=== PATIENT | female | born 1955 | race Caucasian/White ===

== ENCOUNTER 2025-04-29 11:22 | Emergency (ER) | payer MEDICARE, SELFPAY ==
[2025-04-29 11:33] VITALS: BP 185/101; PULSE 115; RESP 16; TEMP 36.6; O2SAT 100
[2025-04-29 11:35] VITALS: BP 193/114
--- NOTE | 2025-04-29 11:39 | PC.NURSE ---
cruz vásquez in with pt. call placed to EZEQUIEL milligan per cruz vásquez
--- NOTE | 2025-04-29 11:43 | ED.GENADULT ---
HPI - General Adult General Chief complaint: Unspecified Stated complaint: Blood Pressure/Stress/Anxiety Time Seen by Provider: 04/29/25 11:35 Source: patient Mode of arrival: ambulatory Limitations: no limitations History of Present Illness HPI narrative: Lexi is a 69-year-old female patient presenting to the clinic today with complaints of elevated blood pressure, increased stress and anxiety. She saw her PCP yesterday and was given a refill of her Ativan and was given a refill of her losartan. States that she has not been taking her losartan medication regularly. Did take her pill this morning. Blood pressure was elevated at home over 170 systolic so patient contacted her PCP and came to the urgent care. She denies any headache, shortness of breath, chest pain, dizziness, or visual changes. Blood pressure on the right arm was 185/101 and blood pressure in the left arm was 193/114 in the clinic today. Related Data Allergies Allergy/AdvReac Type Severity Reaction Status Date / Time propoxyphene Allergy Mild Other Verified 04/29/25 11:38 codeine Allergy Unknown Other Verified 04/29/25 11:38 naproxen Allergy Unknown Other Verified 04/29/25 11:38 meloxicam AdvReac Unknown GASTRIC Verified 04/29/25 11:38 DISTRESS Review of Systems Review of Systems: Pertinent positives per HPI. Patient denies any fever, chills, rash, headache, visual changes, dizziness, cough, runny nose, sore throat, shortness of breath, chest pain, palpitations, nausea, vomiting, diarrhea, constipation, abdominal pain, or any urinary issues. PMFSH Past Medical History Medical History Hx of blood clots Vaginitis and vulvovaginitis, unspecified Primary osteoarthritis of left knee Primary osteoarthritis of knees, bilateral Pes anserinus bursitis of left knee Other hyperlipidemia Hyperlipidemia, unspecified Flu vaccine need Family history of malignant neoplasm of digestive organ Essential (primary) hypertension Encounter for screening for malignant neoplasm of colon Encounter for other specified surgical aftercare Disease of nail Atopic dermatitis, unspecified Anxiety state, unspecified Anxiety Acute pain of left knee Family History Family History Father Hypertension Malignant neoplasm of prostate Patient's father is in good health Family history of arthritis Sibling Hypertension Patient's sister is in good health Patient's brother is in good health Cerebrovascular accident Mother Patient's mother is in good health Family history of dementia Other Carcinoma of colon Family history of malignant neoplasm Social History Social History Smoking status: Former smoker Second hand tobacco smoke exposure: No Smoking end date: 09/04/87 Alcohol intake: never Substance use: never Do You Feel Safe in your Home?: Yes Lack of Transportation: No Lack of Food: Never True Current Housing: I Have Housing Concerned About Future Housing: No Difficulty Paying Gas/Electric Bills: No Difficulty Paying for Meds: No Currently Unemployed: No Education: Trade/Vocational Certificate Difficulty w/ Childcare or Family Care: No Occupation/Education: retired Gender identity (if verbalized by the patient): Female Sexual Orientation (if Verbalized by the Patient): Straight or Heterosexual Spiritual care concerns: No Agree to blood products: No Comments At the time of my signature, I reviewed and agree with the nursing past medical, surgical, social, and family history. There is no relevant family history pertinent to the patient complaint. Exam Narrative: General: Well-developed, well nourished, in no apparent distress Head: Normocephalic, atraumatic. Cardio: Regular rate and rhythm, s1 and s2 normal, no murmur appreciated. Resp: Clear to auscultation bilaterally, no rhonchi, rales, wheezing or rubs. Extremities: No deformity, no edema, no cyanosis, capillary refill less than 2 seconds, peripheral pulses palpable and strong. Integumentary: Pillager, warm, and dry, intact without lesion, no rashes. Course Course Emergency Course: Portions of this record may have been created with voice recognition software. Level of Care: Express Care Visit Vital Signs Vital signs: Vital Signs Temperature 36.6 C 04/29/25 11:33 Pulse Rate 115 H 04/29/25 11:33 Respiratory Rate 16 04/29/25 11:33 Blood Pressure 185/101 H 04/29/25 11:33 Pulse Oximetry 100 04/29/25 11:33 Temperature 36.6 C 04/29/25 11:33 Pulse Rate 115 H 04/29/25 11:33 Respiratory Rate 16 04/29/25 11:33 Blood Pressure 193/114 H 04/29/25 11:35 Pulse Oximetry 100 04/29/25 11:33 Vital signs reviewed Transfer Transfered to: [place] Transportation: Other (Private car) Transfer rationale: Hypertension urgency Accepting physician: Dr. Mtz Transfer comments: Private car Medical Decision Making MDM Narrative Medical decision making narrative: At the time of visit patient is resting comfortably on the exam table. Patient appears to be nontoxic. Complaints of elevated blood pressure, increased stress and anxiety. She saw her PCP yesterday and was given a refill of her Ativan and was given a refill of her losartan. States that she has not been taking her losartan medication regularly. Did take her pill this morning. Blood pressure was elevated at home over 170 systolic so patient contacted her PCP and came to the urgent care. She denies any headache, shortness of breath, chest pain, dizziness, or visual changes. Blood pressure on the right arm was 185/101 and blood pressure in the left arm was 193/114 in the clinic today. Plan: Recommend transfer to the ER for asymptomatic hypertension urgency. Patient agrees to transfer would like to go to [place] the emergency room. Contacted Armando COVINGTON at [place] emergency room report was given for continuity care. Dr. Mtz accepts patient for transfer. Differential Diagnosis Differential Diagnosis: Hypertension urgency, hypertension emergency, anxiety, PR, CVA, end-organ damage Vital Signs Vital Signs: Vital Signs Temperature 36.6 C 04/29/25 11:33 Pulse Rate 115 H 04/29/25 11:33 Respiratory Rate 16 04/29/25 11:33 Blood Pressure 185/101 H 04/29/25 11:33 Pulse Oximetry 100 04/29/25 11:33 Temperature 36.6 C 04/29/25 11:33 Pulse Rate 115 H 04/29/25 11:33 Respiratory Rate 16 04/29/25 11:33 Blood Pressure 193/114 H 04/29/25 11:35 Pulse Oximetry 100 04/29/25 11:33 Discharge Plan Discharge Clinical Impression: Asymptomatic hypertensive urgency Patient Disposition: Acute Care Hospital Condition: Stable Patient Language: Occitan Prescriptions: No Action lorazepam [Ativan] 1 mg tablet 1 mg PO DAILY PRN (Reason: anxiety) Qty: 10 0RF losartan-hydrochlorothiazide 100-25 mg tablet 1 tablet PO DAILY Qty: 90 1RF clobetasol 0.05 % gel 1 applic topical DAILY PRN (Reason: rash) Qty: 15 0RF Follow-up/Referrals: Rosaline Villagomez APRN [Primary Care Provider, Internal Medicine] Time of Disposition: 11:45 Quality NIHSS Nursing Documentation ED NIHSS nursing documentation: reviewed/agree
== END 2025-04-29 11:45 | disposition short-term general hospital (02) ==
LOC: EXPGOSH 11:25
PROVIDERS: Emergency Provider Nurse Practitioner Family; PCP Nurse Practitioner Family
DX: I16.0 Hypertensive urgency (principal); E78.49 Other hyperlipidemia; I10 Essential (primary) hypertension; F41.9 Anxiety disorder, unspecified; Z87.891 Personal history of nicotine dependence
CPT/HCPCS: 99212; G0463

== ENCOUNTER 2025-04-29 12:02 | Emergency (ER) | payer MEDICARE, SELFPAY ==
[2025-04-29 12:05] VITALS: BP 164/101; PULSE 112; RESP 20; TEMP 36.4; O2SAT 98
[2025-04-29 13:18] VITALS: BP 183/87; PULSE 95; RESP 16; TEMP 36.6; O2SAT 97
--- NOTE | 2025-04-29 13:38 | PC.NURSE ---
Pt's BP rechecked and pt reports she wants to go. She reports she does not feel bad and thinks she got anxious this AM when BP was elevated at home. Reports she thinks her anxiety is increasing her BP. 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 Pt advised of all risks of not being evaluated and voices understanding. Pt reports if she feels bad or feels the need to return to ED she will come back. Pt's daughter here and also voices understanding. BP rechecked again and was 164/87, HR-76
== END 2025-04-29 13:45 | disposition left against medical advice (07) ==
PROVIDERS: PCP Nurse Practitioner Family
DX: I10 Essential (primary) hypertension (principal)
CPT/HCPCS: 99199